=== PATIENT | male | born 1965 | race Caucasian/White ===

== ENCOUNTER 2016-09-11 10:09 | Day surgery (SDC) | payer OTHER ==
[~2016-09-11] VITALS: Ht 185.4 cm; Wt 161.0 kg
[2016-09-11 10:52] VITALS: Ht 185.4 cm; Wt 161.0 kg
[2016-09-11] MEDS ORDERED: BENA40TA41 PO (11:07)
[2016-09-11] MEDS ORDERED: HYD25 PO (11:07)
[2016-09-11] MEDS ORDERED: BENA10TA48 PO (11:07)
[2016-09-11] MEDS ORDERED: ATOR40TA68 PO (11:07)
[2016-09-11] MEDS ORDERED: MTF1000T PO (11:07)
[2016-09-11] MEDS ORDERED: FENTAnyl 50 MCG/ML VIAL ONE (11:17)
[2016-09-11] MEDS ORDERED: PROPOFOL 20 ML ONE (11:17)
[2016-09-11 11:37] VITALS: BP 138/79; PULSE 79; RESP 13
--- NOTE | 2016-09-11 12:12 | GILP ---
DATE OF PROCEDURE: NAME OF PROCEDURE: Colonoscopy. SURGEON: Nicky Villegas MD PREOPERATIVE DIAGNOSES: History of colon polyps. POSTOPERATIVE DIAGNOSES 1. Colonoscopy all the way to the cecum. 2. Internal hemorrhoids. 3. No colon neoplasm was identified. INDICATION FOR THE PROCEDURE: Mr. Rishi Kelley is a 50-year-old male patient who had history of co miracle polyps. He had a last colonoscopy more than 5 years ago and he was noted to have a sessile serr ated polyp, so the patient was scheduled for a followup colonoscopy. The procedure and possible complications were well explained to the patient, he understood and conse nted to the procedure. DESCRIPTION OF PROCEDURE: Under the influence of anesthesia, the colonoscope was carefully introduc ed in the rectum, and under direct vision it was advanced all the way to the cecum. FINDINGS: The patient had internal hemorrhoids. No colon neoplasm was identified. He tolerated the procedure very well and there was no complication from the procedure. At the end o f the procedure he was awake with stable vital signs, and he was discharged home to the care of his family. IMPRESSION: 1. Colonoscopy all the way to the cecum. 2. Internal hemorrhoids. 3. No colon neoplasm was identified. PLAN: Next screening colonoscopy in 10 years. Dictated By: NICKY REYES/URBAN Conf#: [id number] DID#: [id number]
[2016-09-11 12:32] VITALS: BP 144/63; RESP 16
== END 2016-09-11 12:40 | disposition home or self-care (01) ==
LOC: GIL 10:09
PROVIDERS: ATTEND Internal Medicine Gastroenterology
DX: Z86.010 Personal history of colon polyps (principal); K64.8 Other hemorrhoids; I10 Essential (primary) hypertension; E11.9 Type 2 diabetes mellitus without complications; E66.01 Morbid (severe) obesity due to excess calories; Z68.42 Body mass index [BMI] 45.0-49.9, adult
CPT/HCPCS: 45378; 82962; J3010; Z7610

== ENCOUNTER 2018-02-26 11:00 | Observation (INO) | END 2018-02-27 12:00 | disposition home or self-care (01) ==